=== PATIENT | female | born 1955 | race Caucasian/White ===

== ENCOUNTER 2024-08-15 12:17 | Outpatient (OUT) | payer OTHER, MEDICAID, SELFPAY ==
--- NOTE | 2024-08-15 12:32 | CT_ITS ---
The [address] [address] Patient Name: MIMI LATHAM MRN: [id number] date: 1955 Sex: F Assigned Patient Location: CT Current Patient Location: CT Accession/Order Number: [id number] Exam Date: 08/15/2024 15:07 Report Date: 08/15/2024 15:12 At the request of: JOE DANIELLE Procedure: CT shoulder LT wo con CT shoulder LT wo con 08/15/2024 12:48 PM SIGNS AND SYMPTOMS: pain in left shoulder M25.512 TECHNIQUE: Multidetector CT axial slices of the left shoulder without IV contrast. Multiplanar reformats were performed and viewed on a separate workstation and reviewed to further define anatomy and possible pathology. CT was performed with one or more of the following dose reduction techniques: Automated exposure control, adjustment of the mA and/or kV according to patient size, or use of iterative reconstruction technique. COMPARISON: None. FINDINGS: There is reverse total left shoulder arthroplasty hardware. The hardware is grossly intact. No hardware complication. No fracture or dislocation. The visualized left hemithorax is grossly intact. Emphysematous changes are noted throughout the lung parenchyma. CT/CT shoulder LT wo con IMPRESSION: Uncomplicated reverse total left shoulder arthroplasty. No fracture or dislocation. Impression dictated by: Rubén Isidro M.D. 08/15/2024 3:12 PM Dictation Location: [place] [address] Electronically authenticated by: [id number] Y Date: 08/15/2024 15:12
== END 2024-08-15 12:18 | disposition home or self-care (01) ==
LOC: CT 12:22
PROVIDERS: PCP Family Medicine; Visit Provider Family Medicine
DX: M25.512 Pain in left shoulder (principal); Z96.612 Presence of left artificial shoulder joint
CPT/HCPCS: 73200